=== PATIENT | female | born 1970 | race Caucasian/White ===

== ENCOUNTER 2019-04-15 14:23 | Emergency (ER) | payer BC ==
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
--- NOTE | 2019-04-15 15:33 | CR ---
INDICATION: Crush injury TECHNIQUE: X-ray right foot, three views COMPARISON: None available FINDINGS: The alignment is normal. Negative for acute fracture. A calcaneal spur is noted. The soft tissues are unremarkable. No radiopaque foreign body is visualized. IMPRESSION: Negative for acute fracture or dislocation. Dictated by Areli Ricks MD @ 04/15/2019 3:31:26 PM Dictated by: Areli Ricks MD @ 04/15/2019 15:31:31 (Electronically Signed)
== END 2019-04-15 15:30 | disposition home or self-care (01) ==
LOC: MW.ED 14:23
DX: S99.921A Unspecified injury of right foot, initial encounter (principal); W20.8XXA Other cause of strike by thrown, projected or falling object, initial encounter
CPT/HCPCS: 73630-26-RT; 73630-RT; 99283; 99283-25

== ENCOUNTER 2020-08-16 09:41 | Emergency (ER) | payer OTHER ==
[2020-08-16] MEDS ORDERED: Metoclopramide 10 MG/2 ML SDV IVPUSH ONE (10:19)
[2020-08-16] MEDS ORDERED: diphenhydrAMINE 50 MG/ML SDV IVPUSH ONE (10:19)
--- NOTE | 2020-08-16 10:21 | EDM.PDOC ---
ED HPI GENERAL MEDICAL PROBLEM - General Chief Complaint: Respiratory Problem Stated Complaint: SINUS INFECTION Time Seen by Provider: 08/16/20 10:04 Source of Information: Reports: Patient History Limitations: Reports: No Limitations - History of Present Illness INITIAL COMMENTS - FREE TEXT/NARRATIVE: Patient is a 50-year-old female who presents today for headache. Patient thad hale is mostly on the left side and has been present for the past week. Patient has headache has not been controlled with Motrin Tylenol at home. Patient dates that she took a narcotic from her friend does help with her sleep did not relieve the headache. Patient denies any vision changes numbness weakness in her body or other neurological complaints. Patient does have a history of migraines. Left sinus Pain Score (Numeric/FACES): 7 - Related Data Allergies Allergy/AdvReac Type Severity Reaction Status Date / Time No Known Allergies Allergy Verified 08/16/20 10:14 Home Meds: Home Meds traMADol [Ultram] 50 mg PO Q6H PRN #10 tab 04/15/19 [Rx] Past Medical History - Past Health History Medical/Surgical History: Denies Medical/Surgical History HEENT History: Reports: None Cardiovascular History: Reports: None Respiratory History: Reports: None Gastrointestinal History: Reports: None Genitourinary History: Reports: None SWATCH CUTTER History: Reports: None Musculoskeletal History: Reports: None Neurological History: Reports: Migraines Psychiatric History: Reports: None Endocrine/Metabolic History: Reports: None Hematologic History: Reports: None Immunologic History: Reports: None Oncologic (Cancer) History: Reports: None Dermatologic History: Reports: None - Infectious Disease History Infectious Disease History: Reports: Chicken Pox, Measles, Mumps - Past Surgical History Head Surgeries/Procedures: Reports: None GI Surgical History: Reports: Cholecystectomy Musculoskeletal Surgical History: Reports: Other (See Below) Other Musculoskeletal Surgeries/Procedures:: right wrist plate Social & Family History - Family History Family Medical History: No Pertinent Family History - Caffeine Use Caffeine Use: Reports: Coffee - Recreational Drug Use Recreational Drug Use: No ED ROS GENERAL - Review of Systems Review Of Systems: See Below Constitutional: Reports: No Symptoms HEENT: Reports: No Symptoms Respiratory: Reports: No Symptoms Cardiovascular: Reports: No Symptoms Endocrine: Reports: No Symptoms GI/Abdominal: Reports: No Symptoms : Reports: No Symptoms Musculoskeletal: Reports: No Symptoms Skin: Reports: No Symptoms Neurological: Reports: Headache Psychiatric: Reports: No Symptoms Hematologic/Lymphatic: Reports: No Symptoms Immunologic: Reports: No Symptoms ED EXAM, GENERAL - Physical Exam Exam: See Below Exam Limited By: No Limitations General Appearance: Alert, No Apparent Distress Eye Exam: Bilateral Eye: EOMI, PERRL Head: Atraumatic Respiratory/Chest: No Respiratory Distress, Lungs Clear Cardiovascular: Normal Peripheral Pulses, Regular Rate, Rhythm GI/Abdominal: Normal Bowel Sounds, Soft, Non-Tender Extremities: Normal Inspection, Normal Range of Motion Neurological: Alert, Oriented, CN II-XII Intact, Normal Cognition, Normal Gait Skin Exam: Warm Course - Vital Signs Last Recorded V/S: Last Vital Signs Temp 98.6 F 08/16/20 11:25 Pulse 87 08/16/20 11:25 Resp 18 08/16/20 11:25 BP 129/74 08/16/20 11:25 Pulse Ox 97 08/16/20 11:25 - Orders/Labs/Meds Meds: Medications Discontinued Medications Generic Name Dose Route Start Last Admin Trade Name Lyle PRN Reason Stop Dose Admin Diphenhydramine HCl 25 mg 08/16/20 10:19 08/16/20 10:29 Benadryl IVPUSH 08/16/20 10:20 25 mg ONETIME ONE Administration Sodium Chloride 1,000 mls @ 999 mls/hr 08/16/20 10:51 08/16/20 11:25 Normal Saline IV 08/16/20 11:51 999 mls/hr .BOLUS ONE Administration Metoclopramide HCl 10 mg 08/16/20 10:19 08/16/20 10:29 Reglan IVPUSH 08/16/20 10:20 10 mg ONETIME ONE Administration - Re-Assessments/Exams Free Text/Narrative Re-Assessment/Exam: 08/16/20 12:13 Headache has improved after Reglan and Benadryl. Patient also given a liter fluids and feels like she has more energy now. Patient will be discharged home also given Neurology follow-up as she normally follows with neurology but she recently moved here from [place]. Departure - Departure Time of Disposition: 12:14 Disposition: Home, Self-Care 01 Condition: Good Clinical Impression: Headache, Migraine - Discharge Information *PRESCRIPTION DRUG MONITORING PROGRAM REVIEWED*: Not Applicable *COPY OF PRESCRIPTION DRUG MONITORING REPORT IN PATIENT ARLIN: Not Applicable Instructions: Migraine Headache Referrals: PCP,None [Primary Care Provider] - Forms: ED Department Discharge Additional Instructions: The following information is given to patients seen in the emergency department who are being discharged to home. This information is to outline your options for follow-up care. We provide all patients seen in our emergency department with a follow-up referral. The need for follow-up, as well as the timing and circumstances, are variable depending upon the specifics of your emergency department visit. If you don't have a primary care physician on staff, we will provide you with a referral. We always advise you to contact your personal physician following an emergency department visit to inform them of the circumstance of the visit and for follow-up with them and/or the need for any referrals to a consulting specialist. The emergency department will also refer you to a specialist when appropriate. This referral assures that you have the opportunity for follow-up care with a specialist. All of these measure are taken in an effort to provide you with optimal care, which includes your follow-up. Under all circumstances we always encourage you to contact your private physician who remains a resource for coordinating your care. When calling for follow-up care, please make the office aware that this follow-up is from your recent emergency room visit. If for any reason you are refused follow-up, please contact the [facility] Emergency Department at and asked to speak to the emergency department charge nurse. Please follow up with your primary care physician. If you do not have a primary care physician, see below: [facility] [address] [place] [id number] [facility] [address] [place] [address] [facility] - Neurology Professional Building [address] [facility], [address] [place] [address] Please follow-up with your primary care physician. If you have any increased headaches vision changes or other neurologic complaints please return to the ED. Sepsis Event Note (ED) - Evaluation Sepsis Screening Result: No Definite Risk - Focused Exam Vital Signs: Vital Signs Temp Pulse Resp BP Pulse Ox 08/16/20 11:25 98.6 F 87 18 129/74 97 08/16/20 09:59 96.7 F L 96 18 133/86 95 - Assessment/Plan Plan: Patient is a 50-year-old female who presents today for headache has been present for the past 7 days. Patient has history of migraines and seems to be similar to previous migraines. Will give Reglan and Benadryl and reassess.
[2020-08-16] MEDS ORDERED: Sodium Chloride 0.9% 1,000 ML IV ONE (10:51)
== END 2020-08-16 12:45 | disposition home or self-care (01) ==
LOC: MW.ED 09:41
DX: G43.909 Migraine, unspecified, not intractable, without status migrainosus (principal)
CPT/HCPCS: 96374; 96375; 99283; J1200; J2765; J7030

== ENCOUNTER 2020-08-18 12:18 | Emergency (ER) | payer OTHER ==
[2020-08-18] MEDS ORDERED: Metoclopramide 10 MG/2 ML SDV IV ONE (12:59)
[2020-08-18] MEDS ORDERED: Sodium Chloride 0.9% 1,000 ML IV ONE (12:59)
[2020-08-18] MEDS ORDERED: diphenhydrAMINE 50 MG/ML SDV IVPUSH ONE (12:59)
[2020-08-18] MEDS ORDERED: Ondansetron 4 MG/2 ML SDV IVPUSH ONE (12:59)
[2020-08-18] MEDS ORDERED: Ketorolac 30 MG/ML SDV IVPUSH ONE (12:59)
--- NOTE | 2020-08-18 14:35 | EDM.PDOC ---
ED HPI GENERAL MEDICAL PROBLEM - General Chief Complaint: ENT Problem Stated Complaint: HEADACHE Time Seen by Provider: 08/18/20 12:20 Source of Information: Reports: Patient History Limitations: Reports: No Limitations - History of Present Illness INITIAL COMMENTS - FREE TEXT/NARRATIVE: HISTORY AND PHYSICAL: History of present illness: Patient is a 50-year-old female who presents to the ED today with concern of a possible sinus infection, and headache that has been ongoing for 7 to 10 days. Patient states that she was seen and evaluated for a sinus infection in the emergency room a few days ago but states that the pain in her left sinus has increased. Patient states she is also had onset of a headache and has not been able to get rid of her headache. Patient states that she has had frequent sinus infections in the past which have resulted in fevers and feeling unwell and states that her left frontal sinus does have pain. Patient states that she has taken Tylenol yesterday without relief of symptoms but has not taken any medication today for her symptoms. Patient denies any other symptoms or concerns. Patient denies any health history. Patient denies any head trauma or injury. Patient denies fever, chills, chest pain, shortness of breath, or cough. Denies neck stiff ness, change in vision, syncope, or near syncope. Denies nausea, vomiting, abdominal pain, diarrhea, constipation, or dysuria. Has not noted any blood in urine or stool. Patient has been eating and drinking appropriately. Review of systems: As per history of present illness and below otherwise all systems reviewed and negative. Past medical history: As per history of present illness and as reviewed below otherwise noncontributory. Surgical history: As per history of present illness and as reviewed below otherwise noncontributory. Social history: See social history for further information Family history: As per history of present illness and as reviewed below otherwise noncontributory. Physical exam: General: Patient is alert, oriented, and in no acute distress. Patient sitting comfortably on exam table. Vital stable and reviewed by me HEENT: Patient does have pain with palpation of the left-sided maxillary sinus. Otherwise, atraumatic, normocephalic, pupils equal and reactive bilaterally, negative for conjunctival pallor or scleral icterus, mucous membranes moist, TMs normal bilaterally, throat clear, neck supple, nontender, trachea midline. No drooling or trismus noted. No meningeal signs. No hot potato voice noted. Lungs: Patient speaking clearly without breathlessness, no wheezing or stridor, no accessory muscle use or respiratory distress. Auscultation deferred due to current COV-ID 19 outbreak. Heart: Auscultation deferred due to current COV-ID 19 outbreak. Abdomen: Soft, nondistended, nontender. Negative for masses or hepatosplenomegaly. Negative for costovertebral tenderness. Pelvis: Stable nontender. Genitourinary: Deferred. Rectal: Deferred. Skin: Intact, warm, dry. No lesions or rashes noted. Extremities: Atraumatic, negative for cords or calf pain. Neurovascular unremarkable. Neuro: Awake, alert, oriented. Cranial nerves II through XII unremarkable. Cerebellum unremarkable. Motor and sensory unremarkable throughout. Exam nonfocal. Notes: Signs and symptoms that would prompt return to the ED thoroughly discussed with patient. Discussed importance for follow-up with a primary care provider. Voices understanding and is agreeable to plan of care. Denies any further questions or concerns at this time. Diagnostics: COVID-19 Therapeutics: NS, Zofran, Reglan, Benadryl, Toradol Prescription: Augmentin, Zofran Impression: COVID-19 infection Acute maxillary sinusitis Plan: 1. Your COVID-19 screening is positive. That means you do have the coronavirus and are considered contagious. Your vital signs and oxygen saturation are well enough that you were able to monitor your symptoms at home. Continue to monitor for trouble breathing, new confusion or inability to arouse, bluish lips or face or any of the other symptoms we discussed -if this occurs please return to the emergency room. Continue to monitor your health at home for worsening symptoms so that you can be taken care of and treated quickly if needed. 2. Please self quarantine until 10 days have passed since your symptoms began AND you are fever free (<100.4 degrees fahrenheit) for 24 hours without the use of fever-reducing medications AND symptoms are improving. You should restrict activities outside of your home, except for getting medical care. Do not go to work, school, or public areas. Avoid using public transportation, ride-sharing, or taxis. Inform any persons that you have been in contact with since you started becoming symptomatic that you have tested positive; they should be made aware and take the appropriate steps as needed. 3. Take the medications as we prescribed as discussed. You can take NyQuil during the evening to help get a restful night sleep. 4. You may alternate Tylenol and ibuprofen as needed for pain and fever management. 5. The [facility] department will be calling you and following up with you. The [place] COVID 19 Hotline phone number , They are open Wednesday - Wednesday 7am - 7pm. Follow up with your primary care provider for re-evaluation and re-testing after quarantine and discuss when you should be seen. 6. For more specific guidelines regarding isolation/quarantine please visit this website. https://www.health.[place].gov/sites/www/files/documents/Files/BENEDICTO/coronavirus/Factsh eet_for_People_With_COVID-19.pdf Definitive disposition and diagnosis as appropriate pending reevaluation and review of above. Headache Pain Score (Numeric/FACES): 4 - Related Data Allergies Allergy/AdvReac Type Severity Reaction Status Date / Time No Known Allergies Allergy Verified 08/16/20 10:14 Home Meds: Home Meds Amoxicillin/Potassium Clav [Augmentin 875-125 Tablet] 1 each PO BID 7 Days #14 tablet 08/18/20 [Rx] Ondansetron [Zofran ODT] 4 mg PO Q6H PRN #8 tab.dis 08/18/20 [Rx] Past Medical History - Past Health History Medical/Surgical History: Denies Medical/Surgical History HEENT History: Reports: None Cardiovascular History: Reports: None Respiratory History: Reports: None Gastrointestinal History: Reports: None Genitourinary History: Reports: None MILK DRIER History: Reports: None Musculoskeletal History: Reports: None Neurological History: Reports: Migraines Psychiatric History: Reports: None Endocrine/Metabolic History: Reports: None Hematologic History: Reports: None Immunologic History: Reports: None Oncologic (Cancer) History: Reports: None Dermatologic History: Reports: None - Infectious Disease History Infectious Disease History: Reports: Chicken Pox, Measles, Mumps - Past Surgical History Head Surgeries/Procedures: Reports: None GI Surgical History: Reports: Cholecystectomy Musculoskeletal Surgical History: Reports: Other (See Below) Other Musculoskeletal Surgeries/Procedures:: right wrist plate Social & Family History - Family History Family Medical History: No Pertinent Family History - Tobacco Use Tobacco Use Status *Q: Never Tobacco User - Caffeine Use Caffeine Use: Reports: Coffee, Soda - Recreational Drug Use Recreational Drug Use: No ED ROS GENERAL - Review of Systems Review Of Systems: Comprehensive ROS is negative, except as noted in HPI. ED EXAM, GENERAL - Physical Exam Exam: See Below (see dictation) Course - Vital Signs Last Recorded V/S: Last Vital Signs Temp 97.2 F 08/18/20 12:36 Pulse 86 08/18/20 12:36 Resp 18 08/18/20 12:36 BP 133/79 08/18/20 12:36 Pulse Ox 95 08/18/20 12:36 - Orders/Labs/Meds Labs: Laboratory Tests 08/18/20 Range/Units 13:42 SARS-CoV-2 RNA (CONCHIS) POSITIVE H (NEGATIVE) Meds: Medications Discontinued Medications Generic Name Dose Route Start Last Admin Trade Name Freq PRN Reason Stop Dose Admin Diphenhydramine HCl 50 mg 08/18/20 12:59 08/18/20 13:39 Benadryl IVPUSH 08/18/20 13:00 50 mg ONETIME ONE Administration Sodium Chloride 1,000 mls @ 999 mls/hr 08/18/20 12:59 08/18/20 13:40 Normal Saline IV 08/18/20 13:59 999 mls/hr STAT ONE Administration Ketorolac Tromethamine 30 mg 08/18/20 12:59 08/18/20 13:33 Toradol IVPUSH 08/18/20 13:00 30 mg ONETIME ONE Administration Metoclopramide HCl 10 mg 08/18/20 12:59 08/18/20 13:32 Reglan IV 08/18/20 13:00 10 mg ONETIME ONE Administration Ondansetron HCl 4 mg 08/18/20 12:59 08/18/20 13:29 Zofran IVPUSH 08/18/20 13:00 4 mg ONETIME ONE Administration Departure - Departure Time of Disposition: 14:34 Disposition: Home, Self-Care 01 Clinical Impression: COVID-19 virus infection Acute sinusitis Qualifiers: Sinusitis location: frontal Recurrence: recurrent Qualified Code(s): J01.11 - Acute recurrent frontal sinusitis - Discharge Information Prescriptions: Amoxicillin/Potassium Clav [Augmentin 875-125 Tablet] 1 each PO BID 7 Days #14 tablet Ondansetron [Zofran ODT] 4 mg PO Q6H PRN #8 tab.dis PRN Reason: Nausea/Vomiting Referrals: PCP,Not In Area [Primary Care Provider] - Forms: ED Department Discharge Additional Instructions: The following information is given to patients seen in the emergency department who are being discharged to home. This information is to outline your options for follow-up care. We provide all patients seen in our emergency department with a follow-up referral. The need for follow-up, as well as the timing and circumstances, are variable depending upon the specifics of your emergency department visit. If you don't have a primary care physician on staff, we will provide you with a referral. We always advise you to contact your personal physician following an emergency department visit to inform them of the circumstance of the visit and for follow-up with them and/or the need for any referrals to a consulting specialist. The emergency department will also refer you to a specialist when appropriate. This referral assures that you have the opportunity for follow-up care with a specialist. All of these measure are taken in an effort to provide you with optimal care, which includes your follow-up. Under all circumstances we always encourage you to contact your private physician who remains a resource for coordinating your care. When calling for follow-up care, please make the office aware that this follow-up is from your recent emergency room visit. If for any reason you are refused follow-up, please contact the [facility] Department at and asked to speak to the emergency department charge nurse. [facility] [address] [place] [address] [id number] [address] [id number] 1. Your COVID-19 screening is positive. That means you do have the coronavirus and are considered contagious. Your vital signs and oxygen saturation are well enough that you were able to monitor your symptoms at home. Continue to monitor for trouble breathing, new confusion or inability to arouse, bluish lips or face or any of the other symptoms we discussed -if this occurs please return to the emergency room. Continue to monitor your health at home for worsening symptoms so that you can be taken care of and treated quickly if needed. 2. Please self quarantine until 10 days have passed since your symptoms began AND you are fever free (<100.4 degrees fahrenheit) for 24 hours without the use of fever-reducing medications AND symptoms are improving. You should restrict activities outside of your home, except for getting medical care. Do not go to work, school, or public areas. Avoid using public transportation, ride-sharing, or taxis. Inform any persons that you have been in contact with since you started becoming symptomatic that you have tested positive; they should be made aware and take the appropriate steps as needed. 3. Take the medications as we prescribed as discussed. You can take NyQuil during the evening to help get a restful night sleep. 4. You may alternate Tylenol and ibuprofen as needed for pain and fever management. 5. The [facility] department will be calling you and following up with you. The [place] COVID 19 Hotline phone number , They are open Wednesday - Wednesday 7am - 7pm. Follow up with your primary care provider for re-evaluation and re-testing after quarantine and discuss when you should be seen. 6. For more specific guidelines regarding isolation/quarantine please visit this website. https://www.health.[place].gov/sites/www/files/documents/Files/BENEDICTO/coronavirus/Factsheet_for_People_With_ COVID-19.pdf Sepsis Event Note (ED) - Evaluation Sepsis Screening Result: No Definite Risk - Focused Exam Vital Signs: Vital Signs Temp Pulse Resp BP Pulse Ox 08/18/20 12:36 97.2 F 86 18 133/79 95
== END 2020-08-18 15:00 | disposition home or self-care (01) ==
LOC: MW.ED 12:18
DX: U07.1 COVID-19 (principal); J01.11 Acute recurrent frontal sinusitis
CPT/HCPCS: 87635; 96374; 96375; 99284; J1200; J1885; J2405; J2765; J7030; U0002